=== PATIENT | male | born 1980 | race Two or more races ===

== ENCOUNTER 2017-07-19 21:40 | Emergency (ER) | payer SELFPAY ==
[2017-07-19 21:46] VITALS: BP 149/62; PULSE 93; TEMP 98; BMI 36.9
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
[2017-07-19] MEDS ORDERED: IBUPROFEN 600 MG TABLET (FP) PO ONE (23:52)
[2017-07-20] MEDS ORDERED: IBUPROFEN 600 MG TABLET (FP) PO ONE (00:27)
== END 2017-07-20 05:56 | disposition home or self-care (01) ==
LOC: JER 21:40
DX: M51.16 Intervertebral disc disorders with radiculopathy, lumbar region (principal); Z87.828 Personal history of other (healed) physical injury and trauma
CPT/HCPCS: 72131-TC; 73552-TC-LT; 73700-TC-RT; 99282-25